=== PATIENT | male | born 1955 | race Hispanic/Latino ===

== ENCOUNTER 2017-08-26 09:42 | Emergency (ER) | payer BC, OTHER ==
[2017-08-26 09:52] VITALS: TEMP 98.4; O2SAT 98
[2017-08-26] MEDS ORDERED: Albuterol-Ipratrop 3 mg / 0.5 (3 ml) UD INH STA (09:55)
--- NOTE | 2017-08-26 10:51 | ED PDOC ---
HPI: SOB/CHF/COPD Time Seen by Provider: 08/26/17 09:51 Chief Complaint (Nursing): Shortness Of Breath History Per: Patient (Esteban is a 62 yo male with h/o asthma who presents because of a cough that started in the past 1-2 days. He thinks it is due to exposure to someone's cat. States that he is allergic to cat dander. He is somewhat compliant with his meds. He uses albuterol nebs and inhaler as needed. He used one this morning before coming to work. He has been using Advair at most once daily instead of twice. He requests z-vinod because he thinks that he may have a virus or a reaction to cats and it will make him feel better quicker. ) Current Symptoms Are (Timing): Still Present Past Medical History Reviewed: Historical Data Vital Signs: Last Vital Signs Temp 98.4 F 08/26/17 09:51 Pulse 70 08/26/17 09:51 Resp 18 08/26/17 09:56 BP 156/99 H 08/26/17 09:51 Pulse Ox 98 08/26/17 09:51 - Medical History PMH: Asthma, HTN - Family History Family History: States: Unknown Family Hx - Living Arrangements Living Arrangements: With Family - Home Medications Home Medications: Ambulatory Orders Medication Instructions Recorded Albuterol Sulfate [Proair Hfa] 2 puff IH Q4H PRN #1 unit 08/26/17 Azithromycin [Zithromax Tri-Vinod] 500 mg PO DAILY #3 tablet 08/26/17 - Allergies Allergies/Adverse Reactions: Allergies Allergy/AdvReac Type Severity Reaction Status Date / Time No Known Allergies Allergy Verified 08/26/17 09:51 Review of Systems ROS Statement: Except As Marked, All Systems Reviewed And Found Negative Constitutional: Negative for: Fever, Chills Respiratory: Positive for: Cough. Negative for: Hemoptysis Gastrointestinal: Negative for: Nausea, Vomiting Physical Exam - Reviewed Nursing Documentation Reviewed: Yes Vital Signs Reviewed: Yes - Physical Exam Appears: Positive for: Well, Non-toxic, No Acute Distress (dry cough frequently) Head Exam: Positive for: ATRAUMATIC, NORMAL INSPECTION, NORMOCEPHALIC Skin: Positive for: Normal Color, Warm, DRY Eye Exam: Positive for: EOMI, Normal appearance, PERRL ENT: Positive for: Normal ENT Inspection Neck: Positive for: Normal Cardiovascular/Chest: Positive for: Regular Rate, Rhythm Respiratory: Positive for: Other (prolonged expiratory phase) Gastrointestinal/Abdominal: Positive for: Normal Exam, Bowel Sounds, Soft Back: Positive for: Normal Inspection Extremity: Positive for: Normal ROM Neurologic/Psych: Positive for: Alert, Oriented - ECG O2 Sat by Pulse Oximetry: 98 Disposition - Clinical Impression Clinical Impression: Asthma - Patient ED Disposition Is Patient to be Admitted: No Doctor Will See Patient In The: Office Counseled Patient/Family Regarding: Diagnosis, Need For Followup, Rx Given - Disposition Referrals: Jose L Colbert [Outside] Disposition: Routine/Home Disposition Time: 10:20 Condition: IMPROVED Prescriptions: Albuterol Sulfate [Proair Hfa] 2 puff IH Q4H PRN #1 unit PRN Reason: Cough Azithromycin [Zithromax Tri-Vinod] 500 mg PO DAILY #3 tablet Instructions: Asthma (ED) Forms: StevenMPSTOR Holden (Japanese) - POA Present On Arrival: None
[2017-08-26 10:56] VITALS: BP 146/90; PULSE 74; RESP 16
== END 2017-08-26 10:54 | disposition home or self-care (01) ==
LOC: H.ER 09:42
DX: J44.9 Chronic obstructive pulmonary disease, unspecified (principal); I10 Essential (primary) hypertension